=== PATIENT | male | born 1975 | race Caucasian/White ===

== ENCOUNTER 2016-11-26 10:12 | Emergency (ER) | payer OTHER ==
[2016-11-26 11:05] LABS: Basophils % (Auto) 0.2 % (0.0-1.8); Eosinophils % (Auto) 0.9 % (0.0-4.3); Hematocrit 43.2 % (35.5-45.6); Hemoglobin 14.3 gm/dl (11.8-15.2); Mean Corpuscular HGB Conc 33 % (32-34); Mean Corpuscular Hemoglobin 31 pg (28-32); Mean Corpuscular Volume 93 fl (84-94); Platelet Count 184 K/mm3 (140-440); Red Blood Count 4.64 M/mm3 (3.65-5.03); Red Cell Distribution Width 14.1 % (13.2-15.2); White Blood Count 9.9 K/mm3 (4.5-11.0)
[2016-11-26 11:09] LABS: Urine Drugs of Abuse Note Disclamer
[2016-11-26 11:12] LABS: Anion Gap 16 mmol/L; BUN/Creatinine Ratio 13.63; Blood Urea Nitrogen 15 mg/dL (9-20); Calcium 8.8 mg/dL (8.4-10.2); Carbon Dioxide 27 mmol/L (22-30); Chloride 100.2 mmol/L (98-107); Glucose 127 mg/dL (75-100); Potassium 3.8 mmol/L (3.6-5.0); Sodium 139 mmol/L (137-145)
[2016-11-26 11:22] LABS: Bilirubin,Urine NEG (Negative); Blood,Urine SM (Negative); Ketones,Urine 20 mg/dL (Negative); Leukocyte Esterase,Urine NEG (Negative); Mucus,Urine FEW /HPF; Nitrite,Urine NEG (Negative); Protein,Urine <15 mg/dL mg/dL (Negative); Urobilinogen,Urine < 2.0 mg/dL (<2.0)
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
[2016-11-26] MEDS ORDERED: MILK OF MAGNESIA PO PRN (15:29)
[2016-11-26] MEDS ORDERED: ALUM-MAG HYDROX-SIMETH 200-200-20MG/5ML PO PRN (15:29)
[2016-11-26] MEDS ORDERED: TYLENOL PO PRN (15:29)
[2016-11-26 20:03] VITALS: BP 91/66
[2016-11-26] MEDS ORDERED: XANAX ONE (22:03)
[2016-11-26] MEDS ORDERED: XANAX PO ONE (22:10)
== END 2016-11-27 02:56 ==
LOC: ED 10:12
DX: S00-T88 Injury, poisoning and certain other consequences of external causes (principal); F33.3 Major depressive disorder, recurrent, severe with psychotic symptoms; F19.10 Other psychoactive substance abuse, uncomplicated; I25.2 Old myocardial infarction; F20.9 Schizophrenia, unspecified; J45.909 Unspecified asthma, uncomplicated; F43.10 Post-traumatic stress disorder, unspecified; F17.200 Nicotine dependence, unspecified, uncomplicated; F14.10 Cocaine abuse, uncomplicated; F12.10 Cannabis abuse, uncomplicated; Z90.89 Acquired absence of other organs; Z86.19 Personal history of other infectious and parasitic diseases; Z91.013 Allergy to seafood; X58.XXXA Exposure to other specified factors, initial encounter; Y93.89 Activity, other specified; Y99.8 Other external cause status; Y92.89 Other specified places as the place of occurrence of the external cause
CPT/HCPCS: 36415; 80048; 80307; 81001; 85025; 99285; G0480; 80320

== ENCOUNTER 2016-12-18 20:45 | Emergency (ER) | payer SELFPAY ==
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
[2016-12-18 22:09] LABS: Basophils % (Auto) 0.4 % (0.0-1.8); Hematocrit 45.5 % (35.5-45.6); Hemoglobin 15.3 gm/dl (11.8-15.2); Mean Corpuscular HGB Conc 34 % (32-34); Mean Corpuscular Hemoglobin 31 pg (28-32); Mean Corpuscular Volume 92 fl (84-94); Platelet Count 214 K/mm3 (140-440); Red Blood Count 4.95 M/mm3 (3.65-5.03); White Blood Count 11.3 K/mm3 (4.5-11.0)
[2016-12-18 22:31] LABS: Alanine Aminotransferase 21 units/L (7-56); Albumin 4.5 g/dL (3.9-5); Albumin/Globulin Ratio 1.5 %; Alkaline Phosphatase 72 units/L (35-129); Anion Gap 19 mmol/L; BUN/Creatinine Ratio 13.33; Blood Urea Nitrogen 12 mg/dL (9-20); Calcium 9.3 mg/dL (8.4-10.2); Carbon Dioxide 25 mmol/L (22-30); Chloride 97.8 mmol/L (98-107); Creatine Kinase 478 units/L (55-170); Glucose 95 mg/dL (75-100); Potassium 3.5 mmol/L (3.6-5.0); Sodium 138 mmol/L (137-145); Total Protein 7.6 g/dL (6.3-8.2)
[2016-12-18 22:36] LABS: Urine Drugs of Abuse Note Disclamer
[2016-12-18 23:06] LABS: Bilirubin,Urine NEG (Negative); Blood,Urine NEG (Negative); Ketones,Urine NEG (Negative); Leukocyte Esterase,Urine NEG (Negative); Mucus,Urine FEW /HPF; Nitrite,Urine NEG (Negative); Urobilinogen,Urine < 2.0 mg/dL (<2.0)
[2016-12-19] MEDS ORDERED: NORCO 5/325 PO ONE (03:10)
[2016-12-19] MEDS ORDERED: TYLENOL PO PRN (11:38)
[2016-12-19] MEDS ORDERED: ALUM-MAG HYDROX-SIMETH 200-200-20MG/5ML PO PRN (11:38)
[2016-12-19] MEDS ORDERED: MILK OF MAGNESIA PO PRN (11:38)
[2016-12-19] MEDS: REMERON PO SCH (18:26)
[2016-12-20] MEDS: REMERON PO SCH (10:15)
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
[2016-12-21] MEDS: REMERON PO SCH (09:55)
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
[2016-12-22] MEDS ORDERED: REMERON ONE (10:01)
[2016-12-22] MEDS: ZOLOFT PO SCH (10:48)
[2016-12-22] MEDS: VISTARIL PO SCH ×2 (22:46→22:51)
--- NOTE | 2016-12-23 09:37 | Progress Note ---
Subjective - Reason for Consult Consult date: 12/23/16 Reason for consult: Psychiatry Follow-up - Chief Complaint Chief complaint: "I feel better" 41 year old male seen in the ER for psychiatric follow up. He complains of auditory hallucinations (voices commanding to harm self) and recently using crack/cocaine, 7.5gm every other day for years. Last use 5 days ago. Today patient is calm and cooperative during assessment. He stated that he finally got some rest last night. He stated that the voices has stopped, but he still hear whispers intermittently. He denies SI/HI's, VH's, or depression/anxiety symptoms. Patient was not drowsy this morning as he was yesterday during our discussion. Mental Status Exam - Vital signs Last Vital Signs Temp 97.9 F 12/23/16 03:52 Pulse 93 H 12/23/16 03:52 Resp 20 12/23/16 03:52 BP 117/70 12/23/16 03:52 Pulse Ox 95 12/23/16 03:52 - Exam Narrative exam: MSE: Appearance: cooperative, calm Behavior: good eye contact Speech: regular rate and tone Mood: "okay" Affect: congruent to mood Thought Process: linear Thought Content: denies SI/HI's and VH's Motor Activity: ambulatory Cognition: a/ox 3 Insight: fair Judgment: fair Assessment and Plan Impression: MDD Severe Type, PTSD, FAHAD, Substance Use DO (Cocaine and Marijuana) . 41 year old male seen in the ER for psychiatric follow up. He complains of auditory hallucinations (voices commanding to harm self) and recently using crack/cocaine, 7.5gm every other day for years. Last use 5 days ago. Today patient is calm and cooperative during assessment. He stated that he finally got some rest last night. He stated that the voices has stopped, but he still hear whispers intermittently. Positive for marijuana and cocaine. He denies SI/ HI's and VH's. Recommendation/Plan: Continue 1013 with placement to inpatient psy services. Continue Seroquel to 200 mg PO HS for psychosis/mood, Vistaril 25 mg PO TID for anxiety, and Zoloft 50 mg PO daily for depression. Discussed possible metabolic side effect of Seroquel and possible suicidality or medication induced hugo reference antidepressants.
[2016-12-23] MEDS: VISTARIL PO SCH ×3 (10:00→21:31)
[2016-12-23] MEDS: ZOLOFT PO SCH (10:00)
[2016-12-24] MEDS: VISTARIL PO SCH ×3 (07:54→20:14)
[2016-12-24] MEDS: ZOLOFT PO SCH (09:56)
--- NOTE | 2016-12-24 13:43 | Progress Note ---
Subjective - Reason for Consult Consult date: 12/24/16 Reason for consult: psychiatric follow up - Chief Complaint Chief complaint: "I need help" 41 year old male seen in the ER for psychiatric follow up. He complains of auditory hallucinations (voices commanding to harm self) and recently using crack/cocaine, 7.5gm every other day for years. Last use 1 week ago. Today patient is calm and cooperative during assessment. He stated that the voices has stopped, but he still hear whispers intermittently. He states he has thoughts of cutting himself. Mental Status Exam - Vital signs Last Vital Signs Temp 98.1 F 12/24/16 09:02 Pulse 88 12/24/16 09:02 Resp 18 12/24/16 09:02 BP 107/65 12/24/16 09:02 Pulse Ox 98 12/24/16 09:02 - Exam Narrative exam: Orientation: time, place, person Affect: depressed Mood: congruent with affect Thought content: other (SI, No HI) Thought Process: Intact Perceptions: auditory hallucinations Speech: normal rate and pattern Concentration: focused Motor activity: other (retarded) Level of consciousness: alert Memory: Intact Sleep Symptoms: Nightmares Interaction: cooperative Assessment and Plan Impression: Cocaine use disorder, severe bipolar disorder, current episode depressed, with psychotic features vs. mdd Recommendation: Continue 1013 and transfer to inpatient psychiatric unit Continue Seroquel 200mg hs for mood/psychotic symptoms and zoloft 50mg daily for ptsd
[2016-12-25] MEDS: ZOLOFT PO SCH (10:05)
[2016-12-25] MEDS: VISTARIL PO SCH ×2 (10:05→13:58)
--- NOTE | 2016-12-25 10:44 | Progress Note ---
Subjective - Reason for Consult Consult date: 12/25/16 Reason for consult: Psychiatry Follow-up - Chief Complaint Chief complaint: "It's my chest" 41 year old male seen in the ER for psychiatric follow up. He complains of auditory hallucinations (voices commanding to harm self) and recently using crack/cocaine, 7.5gm every other day for years. Today patient is calm and cooperative during assessment. He stated that his main issue is chest pain. I notified the staffing program manager and a EKG was completed. Per the RN his EKG was NSR. He denies SI/HI's, AVH's (whispers), or depression symptoms. I returned to see patient and he stated, "My chest feel better." Patient stated that he is willing to go the [facility] for rehab services (Substance abuse) Mental Status Exam - Vital signs Last Vital Signs Temp 98.5 F 12/24/16 21:39 Pulse 86 12/24/16 21:39 Resp 16 12/25/16 06:37 BP 108/64 12/24/16 21:39 Pulse Ox 95 12/24/16 21:39 - Exam Narrative exam: MSE: Appearance: cooperative, calm Behavior: good eye contact Speech: regular rate and tone Mood: "i feel fine" Affect: congruent to mood Thought Process: linear Thought Content: denies SI/HI's and VH's Motor Activity: ambulatory Cognition: a/ox 3 Insight: fair Judgment: fair Assessment and Plan Impression: MDD Severe Type, PTSD, FAHAD, Substance Use DO (Cocaine and Marijuana) . He denies SI/HI's and VH's. 41 year old male seen in the ER for psychiatric follow up. He complains of auditory hallucinations (voices commanding to harm self) and recently using crack/cocaine, 7.5gm every other day for years. Today patient is calm and cooperative during assessment. He stated that his main issue is chest pain. I notified the staffing program manager and a EKG was completed. Per the RN his EKG was NSR. He denies SI/HI's and AVH's. Positive for marijuana and cocaine. Spoke with his mother Shana Houston and she stated that the patient can return home. Patient is no threat to self. Recommendation/Plan: Rescine 1013. Continue Seroquel to 200 mg PO HS for psychosis/mood, Vistaril 25 mg PO TID for anxiety, and Zoloft 50 mg PO daily for depression. Discussed possible metabolic side effect of Seroquel and possible suicidality or medication induced hugo reference antidepressants. Patient will follow up with outpatient at [facility]. Safety Contract completed with patient.
[2016-12-25 11:51] VITALS: BP 122/81
== END 2016-12-25 19:47 | disposition home or self-care (01) ==
LOC: EEVIPCON 20:45 → ED 20:45
DX: R45.851 Suicidal ideations (principal); F20.9 Schizophrenia, unspecified; F19.10 Other psychoactive substance abuse, uncomplicated; I25.2 Old myocardial infarction; Z86.19 Personal history of other infectious and parasitic diseases; J45.909 Unspecified asthma, uncomplicated; F17.200 Nicotine dependence, unspecified, uncomplicated; F12.10 Cannabis abuse, uncomplicated
CPT/HCPCS: 36415; 80053; 80307; 81001; 82550; 85025; 99284; G0480; 80320; Q0177

== ENCOUNTER 2017-12-23 07:27 | Emergency (ER) | payer OTHER ==
[2017-12-23] MEDS ORDERED: NITROSTAT SL ONE (08:14)
--- NOTE | 2017-12-23 08:15 | Emergency Department Report ---
ED Chest Pain HPI - General Chief Complaint: Chest Pain Stated Complaint: CHEST PAIN Time Seen by Provider: 12/23/17 08:12 Source: patient, EMS (ems notes not available at time of chart dictation), RN notes reviewed, old records reviewed Mode of arrival: Ambulatory - History of Present Illness Initial Comments: This is a 42-year-old male. I have evaluated this patient in the past. He presents to the ER with a complaint of chest pain. Chest pain is central. He indicates his does not radiate anywhere. He also indicates that he is very upset by the recent of a close friend, and smoked crack for 3 days with some Xanax. He was given aspirin by EMS, and reports a history of myocardial infarction 2 or 3 years ago. He denies DVT, pulmonary embolus risk factors. He is also suicidal with experiencing hallucinations. Indicates he wants to run into traffic. MD Complaint: chest pain -: Gradual Onset: during rest Pain Location: substernal, left chest Pain Radiation: none Severity: mild Quality: aching Consistency: intermittent Improves With: other (reports a recent crack binge) Context: other (as per history of present) Aspirin use within the Past 7 Days: (0) No - Related Data On Oral Contraceptives: No Home Medications Medication Instructions Recorded Confirmed Last Taken Brexpiprazole [Rexulti] 3 mg PO QHS 12/18/16 12/18/16 Unknown Mirtazapine [Remeron] 15 mg PO QHS 12/18/16 12/18/16 Unknown Allergies Allergy/AdvReac Type Severity Reaction Status Date / Time Fish Containing Products Allergy Anaphylaxis Verified 11/26/16 10:20 Heart Score - HEART Score History: Slightly suspicious EKG: Non-specific Age: < 45 Risk factors: 1-2 risk factors Troponin: < normal limit HEART Score: 2 - Critical Actions Critical Actions: 0-3 pts:0.9-1.7%risk of adverse cardiac event.Candidate for discharge ED Review of Systems ROS: Stated complaint: CHEST PAIN Other details as noted in HPI Comment: All other systems reviewed and negative Constitutional: denies: fever Eyes: denies: vision change ENT: denies: epistaxis Respiratory: denies: cough Cardiovascular: chest pain Gastrointestinal: denies: abdominal pain Genitourinary: denies: dysuria Musculoskeletal: denies: back pain Psychiatric: anxiety, depression, auditory hallucinations, suicidal thoughts ED Past Medical Hx - Past Medical History Hx Heart Attack/AMI: Yes (X 2 2014 2015) Hx Liver Disease: Yes (HEPATITIS C) Hx Psychiatric Treatment: Yes (SCHIZOPHRENIA ; PTSD) Hx Asthma: Yes Additional medical history: 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 - Surgical History Additional Surgical History: tonsillectomy/adnoidectomy - Social History Smoking Status: Current Every Day Smoker Substance Use Type: Alcohol, Cocaine, Marijuana - Medications Home Medications: Home Medications Medication Instructions Recorded Confirmed Last Taken Type Brexpiprazole [Rexulti] 3 mg PO QHS 12/18/16 12/18/16 Unknown History Mirtazapine [Remeron] 15 mg PO QHS 12/18/16 12/18/16 Unknown History ED Physical Exam - General General appearance: alert, anxious, other (patient initially agitated) - Head Head exam: Present: atraumatic, normocephalic - Eye Eye exam: Present: normal appearance, EOMI. Absent: nystagmus - ENT ENT exam: Present: normal exam, normal orophraynx, mucous membranes moist, normal external ear exam - Neck Neck exam: Present: normal inspection, full ROM. Absent: tenderness, meningismus - Respiratory Respiratory exam: Present: normal lung sounds bilaterally. Absent: respiratory distress - Cardiovascular Cardiovascular Exam: Present: regular rate, normal rhythm, normal heart sounds. Absent: bradycardia, tachycardia, irregular rhythm, systolic murmur, diastolic murmur, rubs, gallop - GI/Abdominal GI/Abdominal exam: Present: soft, normal bowel sounds. Absent: distended, tenderness, guarding, rebound, rigid, pulsatile mass - Rectal Rectal exam: Present: deferred - Extremities Exam Extremities exam: Present: normal inspection, full ROM, normal capillary refill. Absent: tenderness, pedal edema, joint swelling, calf tenderness - Back Exam Back exam: Present: normal inspection, full ROM. Absent: tenderness, CVA tenderness (R), paraspinal tenderness, vertebral tenderness - Neurological Exam Neurological exam: Present: alert, oriented X3, CN II-XII intact, normal gait, other (Extraocular movements intact. Tongue midline. No facial droop. Facial sensation intact to light touch in the V1, V2, V3 distribution bilaterally. 5 and 5 strength in 4 extremities.. Sensation is intact to light touch in 4 extremities.). Absent: motor sensory deficit - Psychiatric Psychiatric exam: Present: agitated, anxious, suicidal ideation - Skin Skin exam: Present: warm, dry, intact, normal color. Absent: rash ED Course Vital Signs 12/23/17 12/23/17 12/23/17 08:00 08:15 08:33 Temperature 98.1 F Pulse Rate 82 85 Respiratory 22 15 Rate Blood Pressure 110/74 112/73 112/73 O2 Sat by Pulse 99 100 100 Oximetry 12/23/17 12/23/17 12/23/17 08:45 09:01 09:59 Temperature Pulse Rate 75 74 85 Respiratory 19 15 16 Rate Blood Pressure 117/75 101/62 112/73 O2 Sat by Pulse 94 99 Oximetry 12/23/17 12/23/17 12/23/17 10:01 10:15 10:30 Temperature Pulse Rate 85 76 77 Respiratory 19 17 13 Rate Blood Pressure 118/77 121/74 104/77 O2 Sat by Pulse 99 95 95 Oximetry 12/23/17 12/23/17 10:45 11:00 Temperature Pulse Rate 78 82 Respiratory 14 13 Rate Blood Pressure 96/59 90/57 O2 Sat by Pulse 91 94 Oximetry - Reevaluation(s) Reevaluation #1: 12/23/17 11:42 perc negative Reevaluation #2: 12/23/17 13:54 The patient has been pleasant, calm and cooperative the whole time and he's been here since my initial evaluation. Blood pressure improved, EKG unchanged 2, troponin negative 2, at this point in time there does not appear to be in immediate medical contraindication to psychiatric admission, evaluation and consultation. the crisis team has been informed. TEJAL score - Tejal Score Age > 65: (0) No Aspirin use within the Past 7 Days: (0) No 3 or more CAD Risk Factors: (0) No 2 or more Angina events in past 24 hrs: (0) No Known CAD with more than 50% Stenosis: (0) No Elevated Cardiac Markers: (0) No ST Deviation Greater than 0.5mm: (0) No TEJAL Score: 0 ED Medical Decision Making - Lab Data Result diagrams: 12/23/17 08:25 12/23/17 08:29 Vital Signs 12/23/17 12/23/17 12/23/17 08:00 08:15 08:33 Temperature 98.1 F Pulse Rate 82 85 Respiratory 22 15 Rate Blood Pressure 110/74 112/73 112/73 O2 Sat by Pulse 99 100 100 Oximetry 12/23/17 12/23/17 12/23/17 08:45 09:01 09:59 Temperature Pulse Rate 75 74 85 Respiratory 19 15 16 Rate Blood Pressure 117/75 101/62 112/73 O2 Sat by Pulse 94 99 Oximetry 12/23/17 12/23/17 12/23/17 10:01 10:15 10:30 Temperature Pulse Rate 85 76 77 Respiratory 19 17 13 Rate Blood Pressure 118/77 121/74 104/77 O2 Sat by Pulse 99 95 95 Oximetry 12/23/17 12/23/17 10:45 11:00 Temperature Pulse Rate 78 82 Respiratory 14 13 Rate Blood Pressure 96/59 90/57 O2 Sat by Pulse 91 94 Oximetry Labs 12/23/17 12/23/17 12/23/17 08:25 08:29 08:29 WBC 11.6 H RBC 4.75 Hgb 14.4 Hct 43.4 MCV 91 MCH 30 MCHC 33 RDW 14.0 Plt Count 193 Lymph % (Auto) 36.1 H Bullitt % (Auto) 9.2 H Eos % (Auto) 0.5 Baso % (Auto) 0.4 Lymph # 4.2 Bullitt # 1.1 H Eos # 0.1 Baso # 0.0 Seg Neutrophils % 53.8 Seg Neutrophils # 6.2 PT 13.8 INR 1.01 APTT 33.6 Sodium 139 Potassium 3.7 Chloride 100.6 Carbon Dioxide 25 Anion Gap 17 BUN 12 Creatinine 1.0 Estimated GFR > 60 BUN/Creatinine Ratio 12 Glucose 93 Calcium 9.4 Total Bilirubin 1.20 AST 25 ALT 22 Alkaline Phosphatase 66 Total Creatine Kinase Troponin T < 0.010 Total Protein 7.2 Albumin 4.2 Albumin/Globulin Ratio 1.4 Lipase 21 Salicylates Acetaminophen Plasma/Serum Alcohol 12/23/17 12/23/17 12/23/17 08:56 08:56 08:56 WBC RBC Hgb Hct MCV MCH MCHC RDW Plt Count Lymph % (Auto) Bullitt % (Auto) Eos % (Auto) Baso % (Auto) Lymph # Bullitt # Eos # Baso # Seg Neutrophils % Seg Neutrophils # PT INR APTT Sodium Potassium Chloride Carbon Dioxide Anion Gap BUN Creatinine Estimated GFR BUN/Creatinine Ratio Glucose Calcium Total Bilirubin AST ALT Alkaline Phosphatase Total Creatine Kinase 579 H Troponin T Total Protein Albumin Albumin/Globulin Ratio Lipase Salicylates 1.4 L Acetaminophen < 5.0 L Plasma/Serum Alcohol 12/23/17 08:56 WBC RBC Hgb Hct MCV MCH MCHC RDW Plt Count Lymph % (Auto) Bullitt % (Auto) Eos % (Auto) Baso % (Auto) Lymph # Bullitt # Eos # Baso # Seg Neutrophils % Seg Neutrophils # PT INR APTT Sodium Potassium Chloride Carbon Dioxide Anion Gap BUN Creatinine Estimated GFR BUN/Creatinine Ratio Glucose Calcium Total Bilirubin AST ALT Alkaline Phosphatase Total Creatine Kinase Troponin T Total Protein Albumin Albumin/Globulin Ratio Lipase Salicylates Acetaminophen Plasma/Serum Alcohol < 0.01 - EKG Data -: EKG Interpreted by Mn EKG shows normal: sinus rhythm, axis, intervals, QRS complexes Rate: normal - EKG Data When compared to previous EKG there are: no significant change 12/23/17 11:42 EKG #1 demonstrates sinus, 75 bpm, normal axis, QTC prolonged, not consistent with a STEMI. Repeat EKG is unchanged. Not consistent with a STEMI. Both EKGs are unchanged when compared to prior EKG from December 2016. 12/23/17 11:43 - Radiology Data Radiology results: report reviewed, image reviewed X-ray of the chest is negative for acute disease - Medical Decision Making Differential diagnosis, including the not limited to: Crack use, cocaine use, acute coronary syndrome, myositis, suicidality, medical clearance for psychiatric placement Assessment and plan: 42-year-old male with suicidality after recent life stressor. He requires a 1013. He was initially agitated and verbally combative with staff members but we were able to verbally de-escalate the patient. His serum toxicology studies are unremarkable, creatinine kinase is 500, troponin negative , EKG unchanged 2, chest pain most likely related to recent ingestion, there are no pulmonary embolus or DVT risk factors, he is low risk by well's criteria , and he has perc negative and low risk by the heart score. The patient is at low risk for major adverse cardiac event. We will continue to observe. Critical care attestation.: If time is entered above; I have spent that time in minutes in the direct care of this critically ill patient, excluding procedure time. ED Disposition Clinical Impression: Polysubstance abuse, Chest pain, Mood disorder Disposition: [id number] PSY HOSP/PSY UNIT Is pt being admited?: No Does the pt Need Aspirin: No Condition: Good Instructions: Chest Pain (ED) Referrals: PRIMARY CARE, [Primary Care Provider] - 3-5 Days
[2017-12-23] MEDS ORDERED: ATIVAN ONE (08:38)
[2017-12-23] MEDS ORDERED: HALDOL ONE (08:38)
[2017-12-23] MEDS ORDERED: HALDOL IM PRN (08:49)
[2017-12-23] MEDS: ATIVAN IM PRN ×2 (08:51→22:56)
[2017-12-23 09:12] LABS: Basophils % (Auto) 0.4 % (0.0-1.8); Eosinophils # (Auto) 0.1 K/mm3 (0.0-0.4); Eosinophils % (Auto) 0.5 % (0.0-4.3); Hematocrit 43.4 % (35.5-45.6); Hemoglobin 14.4 gm/dl (11.8-15.2); Lymphocytes # (Auto) 4.2 K/mm3 (1.2-5.4); Lymphocytes % (Auto) 36.1 % (13.4-35.0); Mean Corpuscular HGB Conc 33 % (32-34); Mean Corpuscular Hemoglobin 30 pg (28-32); Mean Corpuscular Volume 91 fl (84-94); Monocytes # (Auto) 1.1 K/mm3 (0.0-0.8); Monocytes % (Auto) 9.2 % (0.0-7.3); Platelet Count 193 K/mm3 (140-440); Red Blood Count 4.75 M/mm3 (3.65-5.03)
[2017-12-23 09:13] LABS: Alanine Aminotransferase 22 units/L (7-56); Albumin 4.2 g/dL (3.9-5); BUN/Creatinine Ratio 12; Blood Urea Nitrogen 12 mg/dL (9-20); Calcium 9.4 mg/dL (8.4-10.2); Hemolysis Index 5; Lipase 21 units/L (13-60)
[2017-12-23 09:29] LABS: INR 1.01 (0.87-1.13)
[2017-12-23 09:30] LABS: Partial Thromboplastin Time 33.6 Sec. (24.2-36.6)
[2017-12-23] MEDS ORDERED: NACL 0.9% 1000 ML 2,000 ML IV ONE (11:37)
--- NOTE | 2017-12-23 12:58 | XRay Report ---
ROUTINE CHEST, TWO VIEWS: HISTORY: chest pain. The trachea, heart, mediastinal contour, lung armando and bony thorax are unremarkable. Calcified right hilar lymph nodes and calcified granuloma at the right lung base are noted and unchanged since 12/04/15. IMPRESSION: Unremarkable chest x-ray.
[2017-12-23] MEDS ORDERED: TYLENOL PO PRN (14:02)
[2017-12-23] MEDS ORDERED: ZOFRAN ODT PO PRN (14:02)
[2017-12-23 14:24] LABS: Bacteria,Urine 1+ /HPF (Negative); Bilirubin,Urine NEG (Negative); Blood,Urine NEG (Negative); Color,Urine Yellow (Yellow); Mucus,Urine 1+ /HPF; Urobilinogen,Urine < 2.0 mg/dL (<2.0)
[2017-12-23 14:29] LABS: Benzodiazepines Screen,Urine PRESUMPTIVE NEGATIVE; Methadone Screen,Urine PRESUMPTIVE NEGATIVE; Opiate Screen,Urine PRESUMPTIVE NEGATIVE
[2017-12-23 14:53] LABS: Amphetamine Screen,Urine PRESUMPTIVE POSITIVE; Cannabinoid Screen,Urine PRESUMPTIVE POSITIVE; Cocaine Screen,Urine PRESUMPTIVE POSITIVE
[2017-12-24] MEDS: ATIVAN IM PRN ×2 (10:09→14:37)
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
[2017-12-24] MEDS ORDERED: VISTARIL PO PRN (15:56)
[2017-12-24] MEDS ORDERED: ZOLOFT PO SCH (16:00)
[2017-12-24 20:00] VITALS: BP 132/92
[2017-12-24] MEDS ORDERED: MINIPRESS PO SCH (22:00)
== END 2017-12-24 20:02 ==
LOC: ED 07:27 → EEVIPCON 07:27 → ED 12-24 20:02
DX: F32.9 Major depressive disorder, single episode, unspecified (principal); R07.9 Chest pain, unspecified; F17.200 Nicotine dependence, unspecified, uncomplicated; F43.10 Post-traumatic stress disorder, unspecified; F14.10 Cocaine abuse, uncomplicated; F15.10 Other stimulant abuse, uncomplicated; F12.10 Cannabis abuse, uncomplicated; F20.9 Schizophrenia, unspecified; F39 Unspecified mood [affective] disorder; F19.10 Other psychoactive substance abuse, uncomplicated; J45.909 Unspecified asthma, uncomplicated; I25.2 Old myocardial infarction; Z91.013 Allergy to seafood; Z79.899 Other long term (current) drug therapy
CPT/HCPCS: 36415; 71046; 80053; 80307; 81001; 82550; 83690; 84484; 85025; 85610; 85730; 93005; 93010; 96372; 99285; G0480; J1630; J2060; J7030; 80320